=== PATIENT | female | born 1975 | race Caucasian/White ===

== ENCOUNTER 2024-10-08 11:33 | Day surgery (SDC) | payer BC, SELFPAY ==
[2024-09-30 18:25] VITALS: BMI 27.3
--- NOTE | 2024-09-30 18:27 | SUR.PREOP ---
Report to the Outpatient Waiting Room, entrance under the green pavilion located off [facility], at time ___11:30____ on date ___10/08/2024____. Planned Procedure Time: ___1330 .? Time changes happen often and if your time is changed the preop area will call you the afternoon before. - You and your visitor will be asked to self-screen and do not enter if you have any COVID symptoms. Please call surgeon if you need to reschedule. - A mask is optional within the hospital at this time. Patients may have clear liquids (water, carbonated beverages, clear teas, apple juice) until 3 hours prior to surgery (10:30) with a maximum of 20 ounces. - No food from midnight until time of surgery and no smoking, or chewing tobacco (or any form of nicotine). No chewing gum, candy or mints. - Infants may have breast milk until 4 hours before surgery, infant formula 6 hours prior to surgery. - Children will be allowed to drink immediately following surgery.? If applicable, please bring a bottle or sippy cup to assist with drinking. Juice, water, soda, and popsicles are readily available.? For infants on formula, please bring formula the day of surgery.? Pacifiers are allowed. Take only the following medications with a SIP of water on the morning of surgery: Venlafaxine DO NOT STOP ANY OF YOUR OTHER PRESCRIPTION MEDICATIONS PRIOR TO SURGERY EXCEPT THE FOLLOWING Hold all vitamins and supplements for 3 days per anesthesiologist. Medications to discontinue per physician N/A Date to take last dose N/A Please no make-up, nail syriac, hairspray, perfume, deodorant, or body powder the day of surgery.? No jewelry (including any body piercings) or valuables the day of surgery, leave them at home.? Please take a shower or bath the night before, or the morning of, surgery with an antibacterial soap.? Wear comfortable, loose fitting clothing.? Children are encouraged to wear pajamas. - Jewelry must be removed prior to entering the operating room.? Rings and piercings that are not removed may be cut off. - The hospital will not accept responsibility for valuables.? - Please leave all valuables, including medications, at home the day of surgery. If you are going home after surgery, a licensed hazmat cdl a driver must drive you home.? - NO public transportation without another adult if you receive anesthesia. - We recommend that an adult stay with you for 24 hours following discharge. - We also recommend that you do not drive, make important decision, drink alcoholic beverages, or take any drugs that were not prescribed by your health care provider for at least 24 hours after your discharge time. For Pediatric surgeries, we recommend two adults accompany the child home. Follow any additional instructions given to you from your surgeon. Telephone instructions given to ___Denise and asked if any additional questions and then verbalized understanding. Patient advised to call surgeon office or pre surgery nurse liaison [phone] if any additional questions.
[2024-10-08] VITALS (8 sets, daily range): BP systolic 121–138; BP diastolic 72–89; PULSE 74–82; RESP 12–16; TEMP 36.7–36.9; O2SAT 99–100
--- NOTE | 2024-10-08 10:15 | PM.IMHP ---
H&P: HPI History of Present Illness Date/Time: 10/08/24 10:15 Chief Complaint: Desired sterility Narrative: 49-year-old 2 para 2001 who has had progestin containing IUD in place for many years. She has no vaginal bleeding. However, gonadotropins are not in the menopausal range. She would like to have tubal sterilization and IUD removal. Review of Systems Review of Systems: All systems reviewed & are unremarkable except as noted in HPI and below PMFSH Past Medical History Medical History Anxiety Depression Family History Family History Mother Lung cancer Father Bladder cancer Grandparent Breast cancer Social History Social History Smoking status: Never smoker Alcohol intake: current Drinks per week: 3 Substance use: former Substance use type: does not use Other substance usage details: tried marijuana a while ago Living arrangements: with family Additional living arrangements comments: and daughter Meds Home Medications and Allergies Home Medications ?Medication ?Instructions ?Recorded ?Confirmed ?Type lamotrigine 100 mg tablet 100 mg PO HS 09/29/24 09/30/24 History lumateperone 42 mg capsule 42 mg PO HS 09/29/24 09/30/24 History (Caplyta) venlafaxine 100 mg tablet 100 mg PO DAILY 09/29/24 09/30/24 History zolpidem 12.5 mg tablet,extended 12.5 mg PO QHS PRN insomnia 09/29/24 09/30/24 History release,multiphase (Ambien CR) Allergies Allergy/AdvReac Type Severity Reaction Status Date / Time No Known Allergies Allergy Verified 09/30/24 18:14 Exam Const: Orientation/consciousness: patient oriented x3 Other: Well-developed, well-nourished female in no acute distress. Neck: Thyroid: thyroid normal Lymphatic: no lymphadenopathy noted (in neck, axilla or inguinal nodes) Resp: Effort & Inspection: normal respiratory effort Auscultation: clear to auscultation bilaterally Cardio: Rate: regular rate Rhythm: regular rhythm Heart sounds: S1 normal heart sound present and S2 normal heart sound present GI: Other: ABD: Soft, nontender, nondistended. No guarding or rebound tenderness. No hepatosplenomegaly. : General: Yes no CVA tenderness Other: External genitalia: normal female hair distribution, without lesion. Urethral meatus: no lesion, non prolapsed. Bladder: no mass, nontender Vagina: well-estrogenized, without lesion or discharge. No cystocele or rectocele. Cervix: no lesion or discharge. IUD strings visible. Uterus: small, anteverted, freely mobile, nontender Adnexa: no mass or tenderness. Anus/perineum: no lesions, nontender Back/Spine/Pelvis: Back: no CVA tenderness Skin: General skin exam: normal color and no rashes or lesions noted Neuro: General: patient oriented x3 Extrem: Other: Extremities: nontender with no edema Psych: Mental Status: mental status grossly normal Affect: normal affect Assessment and Plan Assessment and plan (1) Unwanted fertility: Code(s): Z30.09 - Encounter for other general counseling and advice on contraception Status: Acute Assessment and Plan: A: Desired sterility. P: She understands there are temporary methods of contraception available to her. She understands that there are nonsurgical options as well as surgical options. She understands that tubal sterilization will render her permanently sterile. She understands that there is a failure rate associated with tubal sterilization, as well as an inherent ectopic gestation risk. Furthermore, she understands risks of surgery to include risks of anesthesia, risks of pain, infection, bleeding, blood products, thromboembolic phenomena and damage to adjacent structures such as bowel, bladder, ureters, blood vessels and nerves. She understands all these risks and elects to proceed with laparoscopic bilateral salpingectomies and IUD removal.
[2024-10-08] MEDS: ACETAMINOPHEN 500 MG TABLET 1000 MG PO (12:05)
[2024-10-08] MEDS: KETOROLAC 15 MG/ML VIAL (*BKC) IV PUSH (12:10)
[2024-10-08 12:27] LABS: BEDSIDEPREGUCG Negative (Negative)
--- NOTE | 2024-10-08 12:36 | WPDHPUPDATE1 ---
History and Physical Update Update Date/Time: 10/08/24 12:36 History and Physical has been reviewed, including an updated exam of the patient. There are NO changes in the patient's condition. Risks, benefits, and alternatives have been discussed and questions answered. Patient agrees to proceed with procedure.
--- NOTE | 2024-10-08 13:07 | P.PNAN_ITS ---
Anes - Initial Pre Proc Eval Procedure: Operation Date: 10/08/24 13:30 Proposed Procedures p Bilateral Laparoscopic Salpingectomy, with Removal of Intrauterine Device - Aamir Ventura MD Date/Time: 10/08/24 13:07 Surgeon: Aamir Ventura MD Pre Op Diagnosis: desires sterilization, iud removal Patient Data Age: 49 Gender: F Height: 1.57 m Weight: 66.1 kg Last Vital Signs Temp 36.9 C 10/08/24 12:02 Pulse 76 10/08/24 12:02 Resp 16 10/08/24 12:02 BP 133/72 10/08/24 12:02 Pulse Ox 100 10/08/24 12:02 O2 Del Method Room Air 10/08/24 12:02 Allergies Allergy/AdvReac Type Severity Reaction Status Date / Time No Known Allergies Allergy Verified 10/08/24 12:22 Home Medications ?Medication ?Instructions ?Recorded ?Confirmed ?Type lamotrigine 100 mg tablet 100 mg PO HS 09/29/24 10/08/24 History lumateperone 42 mg capsule 42 mg PO HS 09/29/24 10/08/24 History (Caplyta) venlafaxine 100 mg tablet 100 mg PO DAILY 09/29/24 10/08/24 History zolpidem 12.5 mg tablet,extended 12.5 mg PO QHS PRN insomnia 09/29/24 10/08/24 History release,multiphase (Ambien CR) Laboratory Tests 10/08/24 12:24 POC Urine HCG, Qual Negative (Negative) Patient hx anesthesia problems: none Family hx anesthesia problems: none Results Review: All pre-operative results and documents have been reviewed as part of the pre- operative evaluation. [facility] Past Medical History Medical History Anxiety Depression Family History Family History Mother Lung cancer Father Bladder cancer Grandparent Breast cancer Social History Social History Smoking status: Never smoker Alcohol intake: current Substance use: former Substance use type: does not use Other substance usage details: tried marijuana a while ago Anes - Eval Final PreProcedure Day of Procedure 10/08/24 13:07 Patient weight: overweight Heart: regular rate and rhythm Lungs: clear to auscultation Airway: Mallampati scale class II Neurological: alert and oriented Last oral intake: >/= 8 hours ASA classification: II Emergent: no Anesthetic plan: proceed Anesthesia type and monitoring: general ETT and standard monitoring Results Review: All pre-operative results and documents have been reviewed as part of the pre- operative evaluation. Informed Consent: The patient's anesthetic plan and its attendant risks and benefits were discussed with the patient/family/POA. Questions were solicited and answers provided to the satisfaction of the patient/family/POA.
--- NOTE | 2024-10-08 14:06 | S_PTH ---
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
--- NOTE | 2024-10-08 14:27 | W.PM.PROC2 ---
Procedure Note - Detailed Date of Procedure 10/08/24 Pre-op Diagnosis Desired sterilization Post-op Diagnosis Same Procedure Performed Removal of IUD Laparoscopic bilateral salpingectomies Surgeon Aamir Ventura MD Anesthesia General Findings Small left ovarian cysts. Otherwise, unremarkable uterus, tubes, right ovary, anterior and posterior cul de sac, bilateral round and uterosacral ligaments. The vermiform appendix and RUQ anatomy were normal-appearing as well. Description of Procedure The patient was taken to the operating room where general endotracheal anesthesia was administered. She was prepared and draped in the usual sterile fashion in dorsal lithotomy position. The bladder was drained with a red rubber catheter. A sterile speculum was placed into the vagina. The anterior lip of the cervix was grasped with a single-tooth tenaculum. The acorn uterine manipulator was placed. The speculum was withdrawn. Gloves were changed and attention was turned the abdomen. An infraumbilical skin incision was made with a scalpel. The abdomen was tented and a 5mm bladeless trocar was advanced under direct laparoscopic visualization. Pneumoperitoneum was administered using carbon dioxide gas. A survey of the pelvis and abdomen revealed the findings noted above. Additional 5 mm incisions were made in the right and left lower quadrants, and 5 mm ports were advanced using bladeless trocars under direct laparoscopic visualization. The Fallopian tube on the right side was grasped and elevated and dissected off the ovary using the Ligasure. The tube was then amputated from the uterus and passed off to be sent to pathology. The left tube was similarly dissected free and excised. Hemostasis was excellent. The ports were withdrawn. The gas was allowed to escape. The skin incisions were reapproximated using interrupted subcuticular sutures of 4 0 Vicryl. Dermaflex was applied externally. The vaginal instrumentation was withdrawn and hemostasis was excellent here as well. Sponge, lap, needle and instrument counts were correct. The patient was awakened and taken to recovery room in stable condition. I was present and scrubbed through the entire procedure. Implants None Estimated Blood Loss 5 Drains No Packing No Pathology Yes (Bilateral fallopian tubes) Complications None Condition Stable Disposition PACU [facility] Billing Surgery - Charge Forward: Surgery Billing
[2024-10-08] MEDS: LACTATED RINGERS 1,000 ML 30 ML IV CONT ×2 (14:29→15:16)
[2024-10-08] MEDS: fentaNYL CITRATE INJ (*CRX) 100 MCG/2 ML VIAL 25 MCG IV PUSH ×2 (14:57→15:00)
[2024-10-08] MEDS: oxyCODONE HCL (*CRX) 5 MG TAB IR PO (15:44)
== END 2024-10-08 16:26 | disposition home or self-care (01) ==
PROVIDERS: Visit Provider Obstetrics & Gynecology
PROC: (CPT 49320; principal; 2024-10-08 13:30)
DX: Z30.2 Encounter for sterilization (principal); Z30.432 Encounter for removal of intrauterine contraceptive device
CPT/HCPCS: 58661; 58301; 88302; A9270; J1100; J1885; J2003; J2250; J2405; J2704; J3010; J7030; J7120